=== PATIENT | female | born 1950 | race Caucasian/White ===

== ENCOUNTER 2016-07-18 13:25 | Inpatient (IN) | payer OTHER ==
[~2016-07-18] VITALS: Ht 165.1 cm; Wt 63.8 kg
[2016-07-18] VITALS (13 sets, daily range): BP systolic 63–119; BP diastolic 42–51
--- NOTE | ~2016-07-18 | DS ---
PATIENT:OKSANA DIAZ :46 MEDICAL RECORD: [id number] DISCHARGE SUMMARY ADMISSION DATE: 07/18/16 DISCHARGE DATE: 07/21/16 DATE OF ADMISSION: 07/19/2016 DATE OF DISCHARGED: 07/21/2016 ADMITTING DIAGNOSIS: Left distal radius fracture and left hip fracture with degenerative joint disease. PROCEDURE PERFORMED DURING HOSPITALIZATION: Left wrist open reduction internal fixation and left total hip arthroplasty for fracture/degenerative joint disease. HISTORY OF PRESENT ILLNESS: This is a pleasant 65-year-old female that unfortunately had a fall and landed on her left side. She had a fracture of her left distal radius. She additionally had a fracture of her hip, but she had a fairly well known and documented problem of arthritis of the hip; therefore she underwent a total hip arthroplasty on the left side. I did ORIF on the left wrist. Today, she to progress well per therapy here. It is felt that she at this juncture could be discharged to home. Continue with a walker with the arm extension. She is to continue on anticoagulation therapy. She is to continue on her pain meds. DISCHARGE DIAGNOSIS: Left wrist fracture, left hip degenerative joint disease/fracture and postop acute blood loss anemia. PLAN: To see me back in the office in about 7-10 days. TRANSINT:[id number] Voice Confirmation ID: [id number] DOCUMENT ID: [id number] DA MATTHEWS MD CC: [id number] DICTATION DATE: 07/21/16805 CASH CROP FARMER: 07/22/16 0140 DIS IN 07/21/16 [address] [place] [address]
--- NOTE | ~2016-07-18 | OP ---
PATIENT NAME: OKSANA DIAZ MEDICAL RECORD: [id number] :46 LOCATION:[facility] ADMISSION DATE:07/18/16 SURGEON: DA RICHTER MD DATE OF OPERATION: 07/18/2016 PREOPERATIVE DIAGNOSES: 1. Left hip degenerative joint disease/femoral neck fracture. 2. Left intra-articular distal radius fracture. POSTOPERATIVE DIAGNOSES: 1. Left hip degenerative joint disease/femoral neck fracture. 2. Left intra-articular distal radius fracture. PROCEDURE PERFORMED: 1. Left total hip arthroplasty. 2. Left wrist open reduction internal fixation. SURGEON: Toni Richter M.D. ANESTHESIA: General with a supraclavicular block for wrist pain for postop. ESTIMATED BLOOD LOSS: Minimal. CONDITION: She tolerated the procedure well and was transferred to the recovery room in stable condition at termination of the procedure. INDICATIONS: This is a very pleasant 65-year-old female that [place], landed on her left side quite hard, presented here, had noted fractures of at least 2 areas. We discussed the options with her. She wanted to go ahead and have them repaired. We discussed risks, benefits, and alternatives including blood loss, scar, pain, need for further procedure, anesthesia risk, nerve, artery and vein injuries, PE, DVT, , leg length discrepancy, and infection. She understood and wished to proceed. OPERATIVE REPORT: The patient was taken to the operating room and placed in supine position. General anesthesia was obtained. She did get the supraclavicular block for the left side. The procedure was begun by initially placing her on her side with the left hip up. The left hip was prepped and draped in normal fashion. She did receive Ancef per protocol. After the initial prep and drape, she had a secondary ChloraPrep and then Ioban dressing placement. This was followed by a lateral incision that was taken down to the IT band. The IT band was split. A Charnley retractor was placed. The anterior portion of the gluteus medius and capsule were taken off the distal pole. I then proceeded to dislocate the hip, removing the fractured femoral head. I placed the anterior and posterior acetabular retractors. I did a cleanup cut on the femoral neck. I then took out the soft tissue from about the acetabulum. I then sequentially reamed up to a 49 and placed a press fit 50 cup, which fit very well. I then copiously irrigated. Following which, I took the leg off the side of the bed into a bag. I did a broach and a cookie cutter, then a canal finder, following which I broached up to a 16. We did a 16 trial with standard head and neck. This felt very good. We took an x-ray intraoperatively, the leg length was appropriate. I therefore took everything out, copiously irrigated, and placed a final 16 high offset stem with a standard neck and head. This was reduced. I then irrigated copiously. Following which, I placed 2 JuggerKnot suture anchors to bring the gluteus pebbles and the capsule back to the OPERATIVE REPORT [id number] SCALLION,OKSANA trochanter. I then closed the IT band with a #1 double-stranded PDS. I then closed with 2-0 Vicryl and john paul. This was dressed. She was then placed in a supine position. Her left arm was then prepped and draped in a normal fashion. She had a volar incision made. This was taken down. The nerve was protected. The quadratus was elevated off the radius. The fracture was reduced and a volar Biomet plate was placed. I pinned it into position, checking its position. Once I was comfortable with this and the reduction, I then started to fill the holes, filling both proximally and distally. When I felt comfortable with this, checking both AP and laterals, and feeling that was stable, I copiously irrigated about the pronator quadratus back over the plate. Then, closed with 2-0 Vicryl. Then with a running 3-0 Prolene with 1/2 inch Steri-Strips, I then placed a volar splint. She was awakened and transferred to recovery room in stable condition, having tolerated the procedure well. TRANSINT:[id number] Voice Confirmation ID: [id number] DOCUMENT ID: [id number] DA RICHTER MD CC: [id number] DICTATION DATE: 07/18/162046 V BELT MOLD ASSEMBLER AND CURER: 07/18/162325 ADM IN [facility] [address] [place] [address]
--- NOTE | ~2016-07-18 | HP ---
PATIENT: OKSANA DIAZ MEDICAL RECORD: [id number] ACCOUNT: [id number] LOCATION:[facility] : 46 ADMISSION DATE: 07/18/16 HISTORY AND PHYSICAL EXAMINATION HISTORY OF PRESENT ILLNESS: This is a pleasant 65-year-old female, slipped and fell at the airport today picking up her daughter. She landed on her left wrist and hip. She had significant pain upon falling. She brought herself to the hospital here at [facility] in [place] where she has been noted to have a displaced femoral neck fracture on the left and a displaced left distal radius fracture. She has been otherwise fairly healthy pleasant woman. She has had some arthritis in her hip that has bothered her some prior to this fracture. She otherwise has been very healthy. She has a previous smoking history of about half a pack a day, which she did for years, but she quit a couple of years ago. ALLERGIES: She has no known drug allergies. PAST MEDICAL HISTORY: She does have history of foot surgery and 2 C-sections. She has had a hysterectomy. She has had an appendectomy. She has been taking aspirin and tramadol. REVIEW OF SYSTEMS: Otherwise negative. PHYSICAL EXAMINATION: VITAL SIGNS: Her temperature was 98.5, her pulse is 97, respiratory rate was 20, and blood pressure was 142/86. HEENT: Within normal limits. CARDIOVASCULAR: She had a regular rate and rhythm. LUNGS: Clear. ABDOMEN: Benign. EXTREMITIES: Examination of her hip revealed a slightly shortened, externally rotated hip, painful with any kind of motion. She is able to wiggle her toes. Light touch was grossly intact. Her pulses are 2+. Her left wrist shows swelling and some dorsal displacement. She can wiggle her fingers and grossly is intact neurovascularly. Rest of her exam is essentially normal. IMAGING: Reviewing her x-rays, she has a displaced distal radius fracture with some intra-articular extension and she also has a displaced femoral neck fracture, which appears to be on an arthritic hip. ASSESSMENT: At this juncture, has left hip fracture with arthritis. Due to her young age and her activity level, I would do a total hip on her rather than a xavier and left wrist with ____ I will do a left wrist open reduction and internal fixation with a volar plate. I have discussed this with her and her daughter. They understand and wish to proceed. We discussed blood loss, scar, pain, need for further procedure, anesthesia risks, failure of the components, need for further procedures, nerve, artery, and vein injuries. She understands and wishes to proceed. We will go ahead and get her on and get this accomplished. TRANSINT:[id number] Voice Confirmation ID: [id number] DOCUMENT ID: [id number] HISTORY AND PHYSICAL [id number] OKSANA DIAZ GORDON TROY MD CC: [id number] DICTATION DATE: 07/18/161822 RECORDER GRAVITY PROSPECTING: 07/18/162005 ADM IN [facility] [address] [id number]
[~2016-07-18 13:25] MED LIST: ALENDRONATE SOD70 MG PO; ASPIRIN EC81 M1 PO; FISH OIL 1,0001 CA1 PO; LODINE200 MG PO
[2016-07-18 14:46] LABS: BASOPHILS 0.3 % (0-2); EOSINOPHILS 0.7 % (0-7); HEMATOCRIT 43.2 % (36.0-48.0); HEMOGLOBIN 14.5 g/dL (12-16); IMMATURE GRANULOCYTES 0.3 % (0-5); LYMPHOCYTES 14.2 % (15-50); MCH 32.5 pg (26.0-34.0); MCHC 33.6 g/dL (31.0-37.0); MCV 96.9 fL (80.0-100.0); MEAN PLATELET VOLUME 10.7 fL (7.4-10.4); MONOCYTES 5.1 % (2-11); NEUTROPHILS 79.4 % (40-80); PLATELET COUNT 228 10x3/uL (130-400); RBC 4.46 10x6/uL (4.00-5.40); RDW 12.7 % (11.5-14.5); WBC 9.6 10x3/uL (4.8-10.8)
[2016-07-18 14:58] LABS: INR 0.91 (0.85-1.17); PROTIME 12.1 SECONDS (11.6-15.0)
[2016-07-18 15:04] LABS: ALBUMIN 3.7 g/dL (3.4-5.0); ALKALINE PHOSPHATASE 50 U/L (46-116); ALT (SGPT) 25 U/L (10-68); BILIRUBIN - TOTAL 0.37 mg/dL (0.2-1.3); CALC OSMOLALITY 278 mosm/kg (275-300); CALCIUM 8.6 mg/dL (8.5-10.1); CARBON DIOXIDE 27.8 mmol/L (21.0-32.0); CHLORIDE - SERUM 104 mmol/L (98-107); CREATININE - SERUM 0.7 mg/dL (0.6-1.3); GLUCOSE 88 mg/dL (74-106); POTASSIUM - SERUM 3.9 mmol/L (3.5-5.1); PROTEIN - SERUM 7.2 g/dL (6.4-8.2); SODIUM 139 mmol/L (136-145); UREA NITROGEN 17 mg/dL (7-18); eGFR NON AFRICAN AMERICAN 88 mL/min (90-120)
--- NOTE | 2016-07-18 21:30 | NUR ---
RECEIVED TO ROOM 2225 VIA BED FROM RECOVERY ROOM. LEFT ARM ORIF AND LEFT HIP SATISH-ARTHROPLASTY. DRESSING CLEAN AND DRY. PATIENT DROWSEY, BUT AWAKE. FAMILY AT BEDSIDE.
[2016-07-19] VITALS: BP 80/43
[2016-07-19 02:19] VITALS: BP 118/51; Ht 165.1 cm; Wt 63.8 kg
[2016-07-19 04:00] VITALS: BP 63/40
[2016-07-19 05:31] LABS: MCH 32.1 pg (26.0-34.0); MCHC 33.1 g/dL (31.0-37.0); MCV 96.9 fL (80.0-100.0); MEAN PLATELET VOLUME 9.9 fL (7.4-10.4); RDW 12.8 % (11.5-14.5); WBC 7.3 10x3/uL (4.8-10.8)
[2016-07-19 05:45] LABS: HEMATOCRIT 31.4 % (36.0-48.0); HEMOGLOBIN 10.4 g/dL (12-16); RBC 3.24 10x6/uL (4.00-5.40)
--- NOTE | 2016-07-19 07:50 | NUR ---
ASSESSMENT PER FLOW SHEET.PT WITHOUT DISTRESS.CALL LIGHT IN REACH
--- NOTE | 2016-07-19 08:37 | NUR ---
SPOKE WITH DR.BIRK MCQUEEN. LOW BP 74/50.HOLD COMPUTER SYSTEMS SECURITY ADMINISTRATOR FOR NOW AND USE OTHER PAIN MEDS TO MANAGE PAIN.
[2016-07-19 09:00] VITALS: BP 96/60
--- NOTE | 2016-07-19 12:00 | NUR ---
BP BETTER 96/60.REMAINS WITHOUT NEEDS.CALL LIGHT IN REACH
--- NOTE | 2016-07-19 15:38 | NUR ---
PAIN MEDS ORDERED.SEE MAR
[2016-07-19 16:17] VITALS: BP 90/45
--- NOTE | 2016-07-19 18:56 | NUR ---
REMAINS WITHOUT NEEDS,WITHOUT CHANGE.CONT PLAN OF CARE
[2016-07-19 19:19] LABS: APPEARANCE CLEAR (CLEAR); BILIRUBIN NEGATIVE (NEGATIVE); COLOR YELLOW (YELLOW); GLUCOSE NEGATIVE (NEGATIVE); KETONE NEGATIVE (NEGATIVE); LEUKOCYTE ESTERASE NEGATIVE (NEGATIVE); NITRITE NEGATIVE (NEGATIVE); PROTEIN NEGATIVE (NEGATIVE); UROBILINOGEN NORMAL (NORMAL)
[2016-07-19 20:00] VITALS: BP 91/51
--- NOTE | 2016-07-19 22:04 | NUR ---
PATIENT RESTING WITH GUEST AT BEDSIDE AND DENIES NEEDS AT THIS TIME. BED IN LOWEST POSITION AND CALL LIGHT WITHIN REACH. ENCOURAGED THE PATIENT TO CALL IF SHE HAS FURTHER NEEDS.
[2016-07-20] VITALS (15 sets, daily range): BP systolic 79–137; BP diastolic 35–77
--- NOTE | 2016-07-20 01:14 | NUR ---
PATIENT BLOOD PRESSURE REPORTED 79/35, 200mL/HR FOR 2 HRS GIVEN TO RAISE IT. PATIENT ASYPTOMATIC OF HYPOTENSION, WILL CONTINUE TO MONITOR.
[2016-07-20 04:35] LABS: HEMATOCRIT 27.2 % (36.0-48.0); HEMOGLOBIN 8.9 g/dL (12-16); MCH 32.1 pg (26.0-34.0); MCHC 32.7 g/dL (31.0-37.0); MCV 98.2 fL (80.0-100.0); MEAN PLATELET VOLUME 9.4 fL (7.4-10.4); RBC 2.77 10x6/uL (4.00-5.40); RDW 13.2 % (11.5-14.5); WBC 5.5 10x3/uL (4.8-10.8)
[2016-07-20 04:49] LABS: ALKALINE PHOSPHATASE 38 U/L (46-116); BILIRUBIN - TOTAL 0.26 mg/dL (0.2-1.3); CALC OSMOLALITY 288 mosm/kg (275-300); CALCIUM 7.1 mg/dL (8.5-10.1); CARBON DIOXIDE 27.1 mmol/L (21.0-32.0); CHLORIDE - SERUM 113 mmol/L (98-107); CREATININE - SERUM 0.8 mg/dL (0.6-1.3); GLUCOSE 105 mg/dL (74-106); POTASSIUM - SERUM 3.5 mmol/L (3.5-5.1); SODIUM 145 mmol/L (136-145); UREA NITROGEN 13 mg/dL (7-18); eGFR NON AFRICAN AMERICAN 76 mL/min (90-120)
[2016-07-20 05:04] LABS: ALBUMIN 2.3 g/dL (3.4-5.0); ALT (SGPT) 17 U/L (10-68); PROTEIN - SERUM 4.9 g/dL (6.4-8.2)
--- NOTE | 2016-07-20 07:30 | NUR ---
RECIEVED PT DURING WALKING ROUNDS. PT RESTING IN BED WITH COMPLAINTS OF PAIN OF A 5 ON A SCALE OF 1-10. MEDICATION TO BE GIVEN PER ORDER. ASSESSMENT DONE PER FLOWSHEET. BED IN LOW POSITION AND CALL LIGHT WITHIN REACH. WILL CONTINUE TO MONITOR.
--- NOTE | 2016-07-20 10:00 | NUR ---
UP ON THE BEDSIDE COMMODE AT THIS TIME. IV DISCONNECTED SO THAT GOWN COULD BE CHANGED. DIRECTOR OF SCOUT WORK AT BEDSIDE. DENIES NEEDS AT THIS TIME. WILL CONTINUE WITH PLAN OF CARE.
--- NOTE | 2016-07-20 10:45 | NUR ---
BLOOD TRANSFUSION STARTED AT THIS TIME BY YU PAINTER RN. PT TOLERATING WELL, NO ADVERSE EFFECTS NOTED.
[2016-07-21] VITALS: BP 108/55
--- NOTE | 2016-07-21 02:31 | NUR ---
EYES CLOSED RESPIRATIONS WITH EASE AND UNLABORED.
[2016-07-21 04:00] VITALS: BP 132/79
[2016-07-21 07:11] LABS: BASOPHILS 0.3 % (0-2); EOSINOPHILS 2.2 % (0-7); HEMATOCRIT 31.9 % (36.0-48.0); HEMOGLOBIN 10.5 g/dL (12-16); IMMATURE GRANULOCYTES 0.3 % (0-5); LYMPHOCYTES 13.2 % (15-50); MCH 31.4 pg (26.0-34.0); MCHC 32.9 g/dL (31.0-37.0); MEAN PLATELET VOLUME 9.2 fL (7.4-10.4); PLATELET COUNT 159 10x3/uL (130-400); RDW 14.9 % (11.5-14.5)
[2016-07-21 07:20] LABS: MCV 95.5 fL (80.0-100.0); RBC 3.34 10x6/uL (4.00-5.40); WBC 7.9 10x3/uL (4.8-10.8)
[2016-07-21 07:32] LABS: CALC OSMOLALITY 278 mosm/kg (275-300); CALCIUM 7.3 mg/dL (8.5-10.1); CARBON DIOXIDE 24.8 mmol/L (21.0-32.0); CHLORIDE - SERUM 109 mmol/L (98-107); CREATININE - SERUM 0.6 mg/dL (0.6-1.3); GLUCOSE 100 mg/dL (74-106); POTASSIUM - SERUM 3.6 mmol/L (3.5-5.1); SODIUM 141 mmol/L (136-145); eGFR NON AFRICAN AMERICAN > 90 mL/min (90-120)
[2016-07-21 07:33] LABS: UREA NITROGEN 7 mg/dL (7-18)
[2016-07-21 07:58] VITALS: BP 121/64
[2016-07-21] MEDS ORDERED: OXYCODONE HCL5 MG PO (08:02)
[2016-07-21] MEDS ORDERED: ELIQUIS2.5 MG PO (08:02)
--- NOTE | 2016-07-21 08:05 | NUR ---
SCHEDULED MEDICATIONS ADMINISTERED AT THIS TIME WITHOUT DIFFICULTY. SLING TO LEFT ARM IN USE WITH DRESSING C/D/I. DRESSING TO LEFT HIP C/D/I. ASSISTED PT UPRIGHT TO BED AND ICE PACK REMOVED FROM HIP. SCD'S AND BED ALARM ON. DENIES FURTHER NEEDS AT PRESENT TIME. JERRY JARRETT AT BEDSIDE. CALL LIGHT IN REACH, WILL CONTINUE WITH PLAN OF CARE.
--- NOTE | 2016-07-21 09:15 | NUR ---
Patient Name: OKSANA DIAZ Admission Status: Elective Accout number: [id number] Admission Date: 07-18-2016 : 1950 Admission Diagnosis:PAIN IN LEFT HIP Attending: WENCESLAO Current LOS: 3 Anticipated DC Date: 07-21-2016 Planned Disposition: Home with Home Health Primary Insurance: [facility] Discharge Planning Comments: CM MET WITH PATIENT AND SPOUSE (JASMYNE) REGARDING D/C NEEDS AND PLANS. PATIENT STATED HER SPOUSE WILL DRIVE HER HOME TODAY AND THEY HAVE NO STEPS OR STAIRS AT THEIR HOME. PATIENT IS INDEPENDENT WITH HER CARE AND HAS NO DME AT HOME. PATIENTS PCP IS DR. SALGADO AND PHARMACY IS [facility]. PATIENTS PLATFORM RW WILL BE DELIVERED TO ROOM TODAY BEFORE D/C FROM [facility]. PATIENT HAS SIGNED THE JOSE FORM FOR [facility] AND THEY KNOW OF PATIENTS DISCHARGE. CM WILL CONTINUE TO FOLLOW PATIENT WITH D/C NEEDS AND PLANS. PCP DR[facility] [phone] JASMYNE (SPOUSE) [phone] Community Health Worker: Violet Manning Is the patient Alert and Oriented? Yes 0 * How many steps to enter\exit or inside your home? 0 0 * PCP DR. SALGADO 0 * Pharmacy [facility] 0 * Preadmission Environment Home with Family 0 * ADLs Independent 0 * Equipment None 0 * List name and contact numbers for known caregivers / representatives who currently or will assist patient after discharge: JASMYNE (SPOUSE) [phone] * Community resources currently utilized None 0 * Additional services required to return to the preadmission environment? Yes 0 * Can the patient safely return to the preadmission environment? Yes 0 * Has this patient been hospitalized within the prior 30 days at any hospital? No 0 Grand Total: 0
--- NOTE | 2016-07-21 10:10 | NUR ---
PRN OXY IR 10MG ADMINISTERED FOR PAIN 6/10 AT THIS TIME. UP IN CHAIR AT THIS TIME PER PHYSICAL THERAPY. ASSISTED PT TO AND FROM BEDSIDE COMMODE. CALL LIGHT IN REACH, WILL CONTINUE WITH PLAN OF CARE.
[2016-07-21 11:54] VITALS: BP 121/64
--- NOTE | 2016-07-21 14:10 | NUR ---
IV TO RIGHT HAND D/C WITH CATH TIP INTACT. DRESSIN TO LEFT HIP C/D/I. PT DENIES QUESTIONS OR CONCERNS RELATED TO DISCHARGE INSTRUCTIONS. D/C HOME WITH DAUGHTER AT THIS TIME.
== END 2016-07-21 14:10 | disposition home health service (06) | DRG 469 ==
LOC: D.ER 13:25 → D.MS 20:55
PROVIDERS: Family Medicine; Nurse Practitioner Family; ADMIT Orthopaedic Surgery Sports Medicine
PROC: 0SRB0JA Replacement of Left Hip Joint with Synthetic Substitute, Uncemented, Open Approach (ICD-10-PCS; principal; 2016-07-18 17:00)
PROC: 0PSJ04Z Reposition Left Radius with Internal Fixation Device, Open Approach (ICD-10-PCS; 2016-07-18 17:00)
DX: S52.502A Unspecified fracture of the lower end of left radius, initial encounter for closed fracture (principal); S72.002A Fracture of unspecified part of neck of left femur, initial encounter for closed fracture; D62 Acute posthemorrhagic anemia; W01.0XXA Fall on same level from slipping, tripping and stumbling without subsequent striking against object, initial encounter; Y92.520 Airport as the place of occurrence of the external cause; I95.9 Hypotension, unspecified; M85.80 Other specified disorders of bone density and structure, unspecified site; M16.12 Unilateral primary osteoarthritis, left hip; Z87.891 Personal history of nicotine dependence